=== PATIENT | female | born 2000 | race Caucasian/White ===

== ENCOUNTER → 2020-04-21 | Outpatient (CLI) | payer OTHER | LOC: ZCOL.LAB 15:08 | DX: R05 Cough (principal); R11.0 Nausea; R51 Headache; Z20.828 Contact with and (suspected) exposure to other viral communicable diseases ==

== ENCOUNTER → 2020-08-02 | Outpatient (CLI) | payer OTHER | LOC: MHCPAIN 14:01 | DX: M47.817 Spondylosis without myelopathy or radiculopathy, lumbosacral region (principal); M54.5 Low back pain; M53.3 Sacrococcygeal disorders, not elsewhere classified; G89.29 Other chronic pain | CPT/HCPCS: G0463 ==

== ENCOUNTER → 2021-06-21 | Outpatient (CLI) | payer OTHER | LOC: COL.RAD 08:17 | DX: K44.9 Diaphragmatic hernia without obstruction or gangrene (principal); K21.9 Gastro-esophageal reflux disease without esophagitis ==

== ENCOUNTER → 2021-06-28 | Outpatient (CLI) | payer OTHER | LOC: COL.RAD 07:46 | DX: K21.9 Gastro-esophageal reflux disease without esophagitis (principal) | CPT/HCPCS: A9541 ==

== ENCOUNTER 2022-01-16 05:54 | Day surgery (SDC) | payer OTHER ==
[2022-01-16] VITALS (11 sets, daily range): BP systolic 103–140; BP diastolic 64–92; PULSE 65–86; TEMP 97.8–98.9
[~2022-01-16] VITALS: Ht 157.5 cm; Wt 85.7 kg
[2022-01-16] MEDS ORDERED: BUSPAR DIVIDOSE15 MG PO (06:31)
[2022-01-16] MEDS ORDERED: ATARAX 25MG25 MG/TAB PO (06:32)
[2022-01-16] MEDS ORDERED: CELEXA40 MG PO (06:33)
--- NOTE | 2022-01-16 11:13 | NUR ---
PT ARRIVE TO FLOOR FROM PACU. A&O X4 BUT DROWSY. 6 INCISION SITES CD&I AND COVERED BY BANDAIDS. MOTHER AT BEDSIDE. ICE CHIPS AND WATER PROVIDED. PT. REPORTS PAIN IN RIGHT SHOULDER AND ABDOMEN. OPTIONS FOR PAIN MEDS REVIEWED WITH FAMILY AND PT. WARM BLANKET TO SHOULDER. NO FURTHER NEEDS AT THIS TIME. CALL LIGHT WITHIN REACH.
--- NOTE | 2022-01-16 12:19 | NUR ---
Pt having complaints of itching. Dr Reis notified, new order for benadryl which was given. Pt doing well otherwise, states not hungry at this time
[2022-01-16] MEDS ORDERED: PEPCID 20MG TAB20 MG PO (13:30)
--- NOTE | 2022-01-16 13:44 | NUR ---
Pt. up to the bathroom and stated it "really hurts" to move. She was able to eat a few bites of jello. Without the 02 her saturation dropped to 89%. O2 reapplied at 3 L/min. Pt. resting in bed with mother at bedside. No further needs at this time. Call light within reach.
--- NOTE | 2022-01-16 13:51 | NUR ---
Internal Medicine Specialist met with patient to discuss discharge planning. Patient's mother, Staci (ph#[phone]) is at bedside. Patient lives on [address] with her , Valerio who is currently deployed. Patient receives primary care at [facility] and uses [facility] on [place] for medications. Patient does not use any DME and is independent with ADLS. Patient does not have Advance Directives. Patient plans to return home at time of discharge. Discharge Plan: Home
--- NOTE | 2022-01-16 20:45 | NUR ---
Pt. sitting up in bed. Pt. is A&OX3, assessment complete. INT to lt. forearm patent. Pt. reports pain at a 3 on pain scale at this time. Abd. incisions cdi. Pt. denies further needs, call light within reach.
[2022-01-17 00:23] VITALS: BP 146/82; PULSE 58; TEMP 98.3
[2022-01-17 04:13] VITALS: BP 133/77; PULSE 72; TEMP 98.3
--- NOTE | 2022-01-17 06:45 | NUR ---
Report received, assumed care for day shift.
[2022-01-17 07:53] VITALS: BP 113/71; PULSE 78; TEMP 98.4
--- NOTE | 2022-01-17 08:30 | NUR ---
Assessment complete. &Ox3. Denies nausea/shortness of breath. Rating pain 4/10 on pain scale described as intermittent cramping. Denies need for intervention but encouraged to call when ready. 6 lap sites with bandaids-CDI. Bowel sounds noted to be hypoactive. Encouraged to ambulate. INT to left hand flushes well with no redness/swelling/drainage noted. Has been tolerating PO. Denies current questions/concerns. Call light in reach. Will monitor.
--- NOTE | 2022-01-17 09:20 | NUR ---
[place] given per dr order for pain to right of abdomen described as sharp-rating pain 8/10 on pain scale.
--- NOTE | 2022-01-17 10:20 | NUR ---
Rating pain 6/10 on pain scale-requesting toradol. Given at this time per dr order.
[2022-01-17 12:00] VITALS: BP 115/71; PULSE 67; TEMP 98.3
--- NOTE | 2022-01-17 12:59 | NUR ---
C/O mild abdominal discomfort-rating pain 4/10 on pain scale-tylenol given per dr order. Reminded to get up and ambulate. States will ambulate after lunch. Will monitor.
--- NOTE | 2022-01-17 13:57 | NUR ---
First visit from the auctioneer tobacco. No needs right now.
[2022-01-17 15:28] VITALS: BP 116/68; PULSE 80; TEMP 98.6
[2022-01-17] MEDS ORDERED: NORCO 325 MG-51 TAB PO (17:12)
--- NOTE | 2022-01-17 19:00 | NUR ---
Pt. has met discharge criteria. Reviewed discharge paperwork with the pt. Pt. voices understanding. Questions asked and answered. INT was removed prior by PERLA [place]. Pt. escorted out by KHALIF.
== END 2022-01-17 19:00 | disposition home or self-care (01) ==
LOC: SDCO 05:54 → SURG 10:56 → SDCO 01-17 19:00
DX: K21.9 Gastro-esophageal reflux disease without esophagitis (principal); D17.1 Benign lipomatous neoplasm of skin and subcutaneous tissue of trunk; K44.9 Diaphragmatic hernia without obstruction or gangrene; Z79.899 Other long term (current) drug therapy
CPT/HCPCS: OP; J0690; J1100; J1170; J1885; J2250; J2405; J2704; J3010; J7120

== ENCOUNTER 2023-10-02 15:16 | Emergency (ER) | payer OTHER ==
[~2023-10-02] VITALS: Ht 157.5 cm; Wt 81.8 kg
[~2023-10-02 15:16] MED LIST: ATARAX 25MG25 MG/TAB PO; BUSPAR DIVIDOSE15 MG PO; CELEXA40 MG PO; NORCO 325 MG-51 TAB PO; PEPCID 20MG TAB20 MG PO
[2023-10-02] MEDS ORDERED: ZOFRAN ODT4 MG PO (15:48)
[2023-10-02 16:02] VITALS: BP 135/83; PULSE 68; TEMP 98.1
== END 2023-10-02 16:02 | disposition home or self-care (01) ==
LOC: COL.ER 15:16
DX: S06.0XAA Concussion with loss of consciousness status unknown, initial encounter (principal); W54.1XXA Struck by dog, initial encounter

== ENCOUNTER 2024-03-20 18:08 | Emergency (ER) | payer OTHER ==
[~2024-03-20] VITALS: Ht 157.5 cm; Wt 79.5 kg
[~2024-03-20 18:08] MED LIST changes: +ZOFRAN ODT4 MG PO
[2024-03-20 18:16] VITALS: TEMP 98
[2024-03-20] MEDS ORDERED: Pantoprazole 40 MG in NS 10 ML IV ONE (18:45)
[2024-03-20 18:50] LABS: BASO # 0.1 K/mm3 (0.0-0.2); BASO % 0.9 % (0.0-2.0); EOS # 0.3 K/mm3 (0.0-0.7); EOS % 4.6 % (0.0-4.0); GRAN # 3.2 K/mm3 (1.4-6.5); GRAN % 56.5 % (42.2-75.2); HEMATOCRIT 37.7 % (37.0-47.0); HEMOGLOBIN 12.7 g/dl (12.5-16.0); LYMPH # 1.7 K/mm3 (1.2-3.4); LYMPH % 30.6 % (20.0-51.0); MEAN CELL VOLUME 84 fl (80.0-100.0); MEAN CORPUSCULAR HEMOGLOBIN 28 pg (27-31); MEAN CORPUSCULAR HGB CONC 34 g/dl (33.0-37.0); MEAN PLATELET VOLUME 9.1 fl (7.4-10.4); MONO # 0.4 K/mm3 (0.1-0.6); MONO % 7.2 % (1.7-9.3); PLATELET COUNT 287 K/mm3 (130-400); RED BLOOD COUNT 4.51 M/mm3 (4.10-5.30); REDCELL DISTRIBUTION WIDTH-CV 13.1 % (11.5-14.5)
[2024-03-20 19:19] LABS: ALANINE AMINOTRANSFERASE 11 U/L (0-55); ALBUMIN 3.7 g/dL (3.5-5.0); ALKALINE PHOSPHATASE 42 U/L (40-150); ANION GAP 9 mmol/L (7-16); AST,SGOT 13 U/L (5-34); BILIRUBIN,TOTAL 0.2 mg/dL (0.2-1.2); BLOOD UREA NITROGEN 13 mg/dL (7-19); CALCIUM 9.7 mg/dL (8.4-10.2); CHLORIDE 110 mEq/L (98-107); CREATININE, serum 0.74 mg/dL (0.57-1.11); GLUCOSE 92 mg/dL (70-99); LIPASE 85 U/L (8-78); POTASSIUM 3.7 mEq/L (3.5-4.5); SODIUM 141 mEq/L (136-145); TOTAL PROTEIN 6.8 g/dl (6.2-8.1)
[2024-03-20 19:30] LABS: TROPONIN-I < 0.010 ng/mL (0.00-0.033)
[2024-03-20] MEDS ORDERED: Iohexol 300 - 100 ML VIAL IV ONE (20:13)
[2024-03-20] MEDS ORDERED: NS 100 ML IV SCH (20:13)
[2024-03-20] MEDS ORDERED: PRIL40 PO (22:59)
[2024-03-20] MEDS ORDERED: CARAFATE 1GM1 G PO (22:59)
[2024-03-20] MEDS ORDERED: Home HYDROcodone/Acetaminophen 5/325 MG #4 TABS/PACK PO ONE (23:00)
[2024-03-20 23:19] VITALS: BP 115/91; PULSE 77
== END 2024-03-20 23:19 | disposition home or self-care (01) ==
LOC: COL.ER 18:08
PROVIDERS: Physician Assistant
DX: K29.70 Gastritis, unspecified, without bleeding (principal)
CPT/HCPCS: C9113; Q9967